=== PATIENT | male | born 1985 | race Caucasian/White ===

== ENCOUNTER 2017-02-11 13:28 | Emergency (ER) | payer OTHER | END 2017-02-11 14:50 | disposition home or self-care (01) | LOC: CED 13:28 | DX: A60.01 Herpesviral infection of penis (principal); L03.012 Cellulitis of left finger; L03.011 Cellulitis of right finger; F17.200 Nicotine dependence, unspecified, uncomplicated | CPT/HCPCS: 99283 ==

== ENCOUNTER 2017-04-06 17:09 | Emergency (ER) | payer OTHER ==
[~2017-04-06] VITALS: Ht 182.9 cm; Wt 179.2 kg
== END 2017-04-06 18:19 | disposition home or self-care (01) ==
LOC: CFTX 17:09 → CED 17:09 → CFTX 18:05
DX: A60.01 Herpesviral infection of penis (principal); F17.210 Nicotine dependence, cigarettes, uncomplicated
CPT/HCPCS: 99282

== ENCOUNTER 2017-04-17 18:14 | Emergency (ER) | payer OTHER | END 2017-04-17 19:05 | disposition left against medical advice (07) | LOC: CFTX 18:14 → CED 18:14 → CFTX 18:49 | DX: E11.9 Type 2 diabetes mellitus without complications (principal); R03.0 Elevated blood-pressure reading, without diagnosis of hypertension; R00.0 Tachycardia, unspecified; F17.210 Nicotine dependence, cigarettes, uncomplicated | CPT/HCPCS: 82947; 99283 ==

== ENCOUNTER 2017-04-26 07:37 | Emergency (ER) | payer OTHER ==
[~2017-04-26] VITALS: Ht 182.9 cm; Wt 179.2 kg
--- NOTE | ~2017-04-26 | EKG ---
PATIENT: KISHOR HENNESSY UNIT #: [id number] Ventricular Rate: 110 BPM Atrial Rate: 110 BPM P-R Interval: 154 ms QRS Duration: 98 ms Q-T Interval: 340 ms QTC Calculation(Bezet): 460 ms P [place]: 60 degrees Calculated R [place]: 20 degrees Calculated T [place]: 52 degrees Diagnosis Line: Sinus tachycardia Diagnosis Line: Otherwise normal ECG Diagnosis Line: No previous ECGs available Diagnosis Line: Confirmed by ANA LOOMIS MD ([id number]) on Diagnosis Line: 04/26/2017 10:41:12 PM INTERPRETING MD: HAYLEY
--- NOTE | ~2017-04-26 | CT2 ---
[facility] A Service of [facility] & [facility] RADIOLOGY TEXT RESULTS PATIENT: KISHOR HENNESSY LOCATION: [facility] : 89 UNIT #: [id number] AGE: [address]: Dawna Garcia MD SEX: M ORDER DR: [id number] [facility] [address] [place], [place] [address] [id number] MR#: [id number] #: [id number] NAME: KISHOR HENNESSY : 1985 SEX: M STUDY DATE/TIME: 04/26/2017 12:05 UNIT: [facility] ROOM: STUDY DESCRIPTION: CT Abd and Pelv W Cont Attending Physician: Dawna Garcia M.D. Ordering Physician: Dawna Garcia M.D. Primary Care Physician: Primary Care Physician No MEDICAL IMAGING REPORT This report is preliminary unless electronic signature is present EXAM CT abdomen and pelvis with contrast INDICATIONS Abdomen pain, vomiting, nausea for 3 days. COMPARISON None. TECHNIQUE Patient was given 100 mL of Isovue 370. Axial 5 mm were obtained through the abdomen and pelvis. Oral contrast was also administered. Sagittal and coronal reconstructions were generated. This CT exam was performed with one or more of the following radiation dose reduction techniques: automatic control, adjustment of mA and/or kV according to patient size, and iterative reconstruction. FINDINGS Lung bases are clear. There appear to be diffuse fatty change through the liver which may be slightly enlarged. The gallbladder is distended and contains some high density material and there is a air density lucency within the gallbladder measuring 2 cm in diameter suggesting a stone. The high-density material may be sludge or more likely represents hepatic excretion of contrast from a previous contrast injection. The spleen is enlarged at 15 cm in AP dimension. The pancreas, adrenal glands and kidneys are normal. The aorta is normal in size. There is no adenopathy. The bowel is normal. The appendix is normal. Study is limited by the patient's size and is very grainy. The bladder and prostate gland are normal. The bones are unremarkable. IMPRESSION 1. Hepatic splenomegaly with fatty change throughout the liver. 2. The gallbladder is denser than normal and this is usually due to STS. [facility] A Service of [facility] RADIOLOGY TEXT RESULTS PATIENT: KISHOR HENNESSY LOCATION: [facility] : 89 UNIT #: [id number] AGE: [address]: Dawna Garcia MD SEX: M ORDER DR: hepatic excretion of contrast. Correlation with a previous recent contrast injection is recommended. The gallbladder wall does not appear thickened but there is a 20 mm lucency within the gallbladder suggesting a stone with air within it. 3. The appendix is normal. 4. Otherwise normal. Dictated by... John Landeros M.D. THIS IS AN ELECTRONICALLY VERIFIED REPORT John Landeros M.D. at 04/26/2017 8:15 PM KEISHA/rebecca TD: 04/26/2017 14:45 JOB #: [id number] MEDICAL IMAGING REPORT Page 1 of 1 COPY
[2017-04-26 08:40] LABS: BASOPHIL# 0.1 X10e3 (0-0.3); DIFF IND NO; EOSINOPHIL# 0.3 X10e3 (0-0.7); EOSINOPHIL% 3.7 % (0.0-7.0); HEMATOCRIT 42.7 % (38.0-50.0); LYMPHOCYTE# 1.8 X10e3 (1.0-3.5); LYMPHOCYTE% 20.3 % (17.0-45.0); MEAN CELL VOLUME 83.9 FL (83-96); MEAN CORPUSCULAR HEMOGLOBIN 29.3 PG (28-34); MEAN PLATELET VOLUME 10.8 FL (6.5-11.5); MONOCYTE# 0.7 X10e3 (0-1.0); MONOCYTE% 8.3 % (3.0-12.0); NEUTROPHIL# 5.8 X10e3 (1.5-7.1); NEUTROPHIL% 66.7 % (40-75); PLATELET COUNT 197 X10e3 (140-420); WHITE BLOOD COUNT 8.7 X10e3 (4.0-10.5)
[2017-04-26 09:05] LABS: ALBUMIN SERUM 4.2 g/dL (3.5-5.0); BILIRUBIN, DIRECT 0.1 mg/dL (0.0-0.2); BILIRUBIN,INDIRECT 0.7 mg/dL (0.0-0.9); BILIRUBIN,TOTAL 0.8 mg/dL (0.2-2.0); BUN/CREATININE RATIO 15.71; CALCIUM SERUM 8.9 mg/dL (8.4-10.2); CREATININE SERUM 0.7 mg/dL (0.6-1.4); GLOM FILT RATE Estimated 126.7 mL/min (>60); POTASSIUM 3.8 mmol/L (3.5-5.1); PROTEIN TOTAL SERUM 8.2 g/dL (6.0-8.3)
[2017-04-26 09:11] LABS: URINE SOURCE CLEAN CATCH
[2017-04-26 09:12] LABS: POC - CKMB 13.5 ng/mL (0.0-7.9); POC - TROPONIN <0.05 ng/mL (<=0.05)
[2017-04-26 09:17] LABS: URINE APPEARANCE CLEAR; URINE BILIRUBIN NEG (NEG); URINE BLOOD NEG (NEG); URINE COLOR YELLOW; URINE GLUCOSE >1000 MG/DL (NEG); URINE KETONE NEG (NEG); URINE LEUKOCYTE ESTERASE NEG (NEG); URINE NITRATE NEG (NEG); URINE PROTEIN 3+ (NEG); URINE SPECIFIC GRAVITY 1.042 (1.003-1.035); URINE UROBILINOGEN 0.2 MG/DL (NEG)
[2017-04-26 09:21] LABS: CULTURE INDICATED? YES; U HYALINE CASTS AUWI 0-2 /[LPF]; URBCS1 AUWI 0-2 /[HPF] (0-2); URINE BACTERIA AUWI NEG (NEGATIVE); URINE SQUAMOUS EPITHELIAL CELL NONE SEEN /[HPF]
[2017-04-26 13:12] LABS: POC - CKMB 8.9 ng/mL (0.0-7.9); POC - TROPONIN <0.05 ng/mL (<=0.05)
== END 2017-04-26 15:00 | disposition home or self-care (01) ==
LOC: CED 07:37
PROVIDERS: Emergency Medicine
DX: R10.9 Unspecified abdominal pain (principal); I10 Essential (primary) hypertension; E11.9 Type 2 diabetes mellitus without complications
CPT/HCPCS: 36415; 74177; 80048; 80076; 81003; 82150; 82553; 83690; 84484; 85025; 87086; 87088; 93005; 96374; 96375; 96376; 99284; J2270; J2405; Q9967